=== PATIENT | male | born 2000 | race African-American/Black ===

== ENCOUNTER 2024-07-30 12:00 | Emergency (ER) | payer MEDICAID ==
[~2024-07-30] VITALS: Ht 185.4 cm; Wt 65.8 kg
[2024-07-30] MEDS ORDERED: ONDANSETRON HCL/PF 4 MG/2 ML VIAL ONE (12:44)
[2024-07-30] MEDS ORDERED: MORPHINE SULFATE INJ 4 MG/ML DISP.SYRIN ONE (12:44)
[2024-07-30] MEDS: MORPHINE SULFATE INJ 2 MG/ML DISP.SYRIN IV ONE (12:49)
[2024-07-30] MEDS: ONDANSETRON HCL/PF - ER 4 MG/2 ML VIAL IV ONE (12:50)
[2024-07-30] MEDS ORDERED: PROPOFOL 20 ML IV ONE (13:40)
[2024-07-30] MEDS: PROPOFOL 200 MG/20 ML VIAL IV ONE ×2 (13:55→15:17)
[2024-07-30 15:27] VITALS: BP 123/84; TEMP 98.5; O2SAT 100
== END 2024-07-30 15:28 | disposition home or self-care (01) ==
LOC: ER 12:29
DX: S03.01XA Dislocation of jaw, right side, initial encounter (principal); Z88.0 Allergy status to penicillin; X58.XXXA Exposure to other specified factors, initial encounter; Y93.9 Activity, unspecified; Y92.89 Other specified places as the place of occurrence of the external cause; Y99.8 Other external cause status
CPT/HCPCS: 99285; 21480; 96374; 96375; 99152; 70110; 70100; J2704; J2270; J2405 ×2; J7030; G0500